=== PATIENT | male | born 2000 | race African-American/Black ===

== ENCOUNTER 2020-09-25 20:57 | Emergency (ER) | payer OTHER ==
[~2020-09-25] VITALS: Ht 167.6 cm; Wt 72.5 kg
[2020-09-26 00:22] VITALS: BP 121/75
== END 2020-09-26 00:24 | disposition home or self-care (01) ==
LOC: M ED 20:57
DX: R51.9 Headache, unspecified (principal)

== ENCOUNTER 2021-06-10 13:07 | Emergency (ER) | payer OTHER ==
[~2021-06-10] VITALS: Ht 167.6 cm; Wt 72.7 kg
[2021-06-10] MEDS ORDERED: BUSP5TA PO (13:22)
[2021-06-10] MEDS ORDERED: PANTOPRAZOLE 40MG VIAL (C9113 PER 1) IV ONE (16:55)
[2021-06-10 17:10] LABS: BASO % 0.5 % (0.0-1.0); EOS # 0.2 10^3/uL (0.0-0.5); EOS % 2.7 % (0.0-3.0); HEMATOCRIT 46.7 % (42.0-52.0); HEMOGLOBIN 15.6 g/dl (13.5-17.5); LYMPH # 2.4 10^3/uL (1.5-5.0); LYMPH % 40.1 % (24.0-44.0); MEAN CORPUSCULAR HGB CONC 33.4 g/dl (32.0-36.5); MEAN CORPUSCULAR VOLUME 83.7 fl (80.0-96.0); MONO # 0.5 10^3/uL (0.0-0.8); MONO % 8.5 % (2.0-8.0); NEUTROPHILS # 2.8 10^3/uL (1.5-8.5); NEUTROPHILS % 47.7 % (36.0-66.0); PLATELET COUNT, AUTOMATED 218 10^3/uL (150-450); RED BLOOD COUNT 5.58 10^6/uL (4.30-6.10); WHITE BLOOD COUNT 5.9 10^3/uL (4.0-10.0)
--- NOTE | 2021-06-10 17:21 | REP ---
INDICATION: CHEST PAIN COMPARISON: None. TECHNIQUE: Portable AP view of the chest FINDINGS: The mediastinum and cardiac silhouette are within normal limits for portable technique. The lung junior are clear without acute consolidation, effusion, or pneumothorax. Skeletal structures are intact. IMPRESSION: No acute cardiopulmonary process appreciated. <Electronically signed by Renny Adler > 06/10/21 [id number]
[2021-06-10 17:44] LABS: ALBUMIN 3.6 GM/DL (3.2-5.2); ALT/SGPT 34 U/L (12-78); BILIRUBIN,DIRECT 0.3 MG/DL (0.0-0.2); BILIRUBIN,TOTAL 1.5 MG/DL (0.2-1.0); BLOOD UREA NITROGEN 10 MG/DL (7-18); CALCIUM LEVEL 9.1 MG/DL (8.5-10.1); CARBON DIOXIDE LEVEL 28 MEQ/L (21-32); CHLORIDE LEVEL 105 MEQ/L (98-107); CREATININE FOR GFR 1.02 MG/DL (0.70-1.30); GLOMERULAR FILTRATION RATE > 60.0 (>60); GLUCOSE, FASTING 74 MG/DL (70-100); LIPASE 67 U/L (73-393); POTASSIUM SERUM 4.2 MEQ/L (3.5-5.1); SODIUM LEVEL 141 MEQ/L (136-145); TOTAL PROTEIN 6.8 GM/DL (6.4-8.2)
[2021-06-10 17:46] LABS: CK-MB VALUE MASS 3.7 NG/ML (<3.6); CPK CREATINE PHOSPHOKINASE 232 U/L (39-308); MB/CK RELATIVE INDEX 1.59 (< OR =4); TROPONIN I < 0.02 NG/ML (< 0.10)
[2021-06-10] MEDS ORDERED: OMEP40CA4 PO (18:04)
[2021-06-10 18:24] VITALS: BP 105/62
--- NOTE | 2021-06-12 07:29 | ECGEPIP ---
[facility] - ED Test Date: 2021-06-10 Pat Name: YARED CARTAGENA Department: Room: - Gender: Male Entry Level Sales Representative: LEANDER : 2000 Requested By: Nathalie Agrawal Order Number: [id number] Reading MD: Nathalie Agrawal Measurements Intervals Golden Rate: 63 P: 76 IL: 192 QRS: 34 QRSD: 88 T: 41 QT: 378 QTc: 386 Interpretive Statements Normal sinus rhythm Early repolarization, clinical correlation no prior Electronically Signed on 06-12-2021 7:28:44 EDT by Nathalie Agrawal
== END 2021-06-10 18:25 | disposition home or self-care (01) ==
LOC: M ED 13:07 → EDBD 13:07 → M ED 18:25
DX: R07.89 Other chest pain (principal); K21.9 Gastro-esophageal reflux disease without esophagitis; F32.9 Major depressive disorder, single episode, unspecified; F41.9 Anxiety disorder, unspecified
CPT/HCPCS: 71045; 80048; 80076; 82550; 82553; 83690; 84484; 85025; 93005; 96374; 99284; C9113

== ENCOUNTER 2022-03-02 13:35 | Emergency (ER) | payer OTHER ==
[~2022-03-02] VITALS: Ht 165.1 cm; Wt 72.7 kg
[2022-03-02 13:35] VITALS: BP 118/69
[~2022-03-02 13:35] MED LIST: BUSP5TA PO; OMEP40CA4 PO
== END 2022-03-02 15:59 | disposition home or self-care (01) ==
LOC: M ED 13:35
DX: R07.9 Chest pain, unspecified (principal); R00.1 Bradycardia, unspecified; K21.9 Gastro-esophageal reflux disease without esophagitis; Z79.899 Other long term (current) drug therapy

== ENCOUNTER → 2022-05-13 | Outpatient (CLI) | payer OTHER | LOC: M CARPUL 07:54 | PROVIDERS: ATTEND Internal Medicine Cardiovascular Disease | DX: R94.31 Abnormal electrocardiogram [ECG] [EKG] (principal) ==